=== PATIENT | female | born 1930 | race Caucasian/White ===

== ENCOUNTER → 2018-08-13 | Outpatient (CLI) | payer MEDICARE, OTHER | END | disposition home or self-care (01) | LOC: CFH 11:28 | PROVIDERS: ATTEND Family Medicine | DX: J98.11 Atelectasis (principal); I51.7 Cardiomegaly; I27.20 Pulmonary hypertension, unspecified | CPT/HCPCS: 71046 ==

== ENCOUNTER 2019-03-30 16:58 | Emergency (ER) | payer MEDICARE, OTHER ==
[~2019-03-30] VITALS: Ht 152.4 cm; Wt 72.7 kg
--- NOTE | 2019-03-30 17:28 | NUR ---
[facility]
--- NOTE | 2019-03-30 17:31 | NUR ---
PT TO ROOM AT THIS TIME. FAMILY HELPING PT CHANGE INTO GOWN
--- NOTE | 2019-03-30 18:12 | NUR ---
CARE GIVERS BEDSIDE.
--- NOTE | 2019-03-30 18:12 | NUR ---
88 Y/O FEMALE PRESENTS TO ED WITH C/O COUGH. PER CARE GIVERS, PT HAS HAD A COUGH FOR 2 WEEKS AND IS ON CEFDINIR. COUGH WAS CLEAR IN COLOR AND NOW THE COUGH IS BACK. NADN. PT RESTING ON GURNEY. WARM BLANKETS PROVIDED. PT PLACED ON CONT PULSE OX,NIBP. EDMD BEDSIDE.
--- NOTE | 2019-03-30 18:35 | NUR ---
BSC TAKEN TO PT ROOM. CAREGIVERS BEDSIDE HELPING PT.
[2019-03-30 18:46] LABS: BASOPHILS % (AUTO) 2 % (0-1); EOSINOPHILS # (AUTO) 0.21 x10^3/uL (0-0.4); EOSINOPHILS % (AUTO) 3 % (1-7); LYMPHOCYTES # (AUTO) 3.07 x10^3/uL (1-3.4); LYMPHOCYTES % (AUTO) 38 % (22-44); MD NO; MEAN CORPUSCULAR HEMOGLOBIN 29.7 pg (27.0-34.8); MEAN PLATELET VOLUME 9.1 fL (7.4-10.4); MONOCYTES # (AUTO) 0.88 x10^3/uL (0.2-0.8); MONOCYTES % (AUTO) 11 % (2-9); NEUTROPHILS # (AUTO) 3.77 x10^3/uL (1.8-6.8); NEUTROPHILS % (AUTO) 46 % (42-75); PLATELET COUNT 212 x10^3/uL (130-400); RED BLOOD COUNT 5.02 x10^6/uL (3.82-5.3); RED CELL DISTRIBUTION WIDTH 15.1 % (9.6-15.2)
--- NOTE | 2019-03-30 18:53 | NUR ---
BEDSIDE REPORT TO SIOBHAN POLK.
[2019-03-30 19:00] VITALS: BP 126/75
[2019-03-30 19:00] LABS: ALBUMIN 3.3 g/dL (3.4-5.0); ANION GAP 4 mmol/L (5-15); CALCIUM 8.6 mg/dL (8.5-10.1); CHLORIDE 109 mmol/L (98-107); CREATININE 0.85 mg/dL (0.55-1.02)
--- NOTE | 2019-03-30 19:00 | NUR ---
REPORT FROM SIOBHAN LARIOS. PT RESTING [place]. FAMILY AT BEDSIDE. VSS.
[2019-03-30 19:03] LABS: TROPONIN I < 0.015 ng/mL (0.000-0.045)
== END 2019-03-30 19:50 | disposition home or self-care (01) ==
LOC: ED 18:38
DX: J20.8 Acute bronchitis due to other specified organisms (principal)
CPT/HCPCS: 36415; 71045; 80048; 82040; 84484; 85025; 93005; 99284

== ENCOUNTER 2019-04-04 03:07 | Inpatient (IN) | payer MEDICARE, OTHER ==
[~2019-04-04] VITALS: Ht 160 cm; Wt 73.3 kg
--- NOTE | 2019-04-04 03:59 | NUR ---
CAREGIVER REPORTS PT HAS BEEN COUGHING MORE W/ INCREASED AMOUNTS OF YELLOW PHLEGM, REPORTS HAS BEEN TAKING ANTIBX ORDERED. PT NOTED TO HAVE STRONG CONGESTED COUGH. PT CURRENTLY ON 2L OXYGEN VIA NC, PER CAREGIVER NO HX OF OXYGEN USE AT HOME. PT CURRENTLY DENIES C/O PAIN. REPOSITIONED ON [place], CALL LIGHT IN HAND. REVIEWED POC W/ PT AND CAREGIVER INCLUDING PENDING TEST RESULTS AND CHART REVIEW BY ERP.
[2019-04-04 04:10] LABS: ALANINE AMINOTRANSFERASE 18 U/L (12-78); ALBUMIN 3.3 g/dL (3.4-5.0); ANION GAP 7 mmol/L (5-15); CALCIUM 8.5 mg/dL (8.5-10.1); CHLORIDE 106 mmol/L (98-107); CREATININE 0.87 mg/dL (0.55-1.02)
[2019-04-04 04:14] LABS: ALKALINE PHOSPHATASE 118 U/L (45-117); TOTAL PROTEIN 7.1 g/dL (6.4-8.2); TROPONIN I < 0.015 ng/mL (0.000-0.045)
[2019-04-04 04:21] LABS: BASOPHILS # (AUTO) 0.02 x10^3/uL (0-0.1); BASOPHILS % (AUTO) 0 % (0-1); EOSINOPHILS # (AUTO) 0.04 x10^3/uL (0-0.4); EOSINOPHILS % (AUTO) 0 % (1-7); LYMPHOCYTES # (AUTO) 1.12 x10^3/uL (1-3.4); LYMPHOCYTES % (AUTO) 8 % (22-44); MD NO; MEAN CORPUSCULAR HEMOGLOBIN 29.5 pg (27.0-34.8); MEAN CORPUSCULAR HGB CONC 32.7 g/dL (32.4-35.8); MEAN CORPUSCULAR VOLUME 90.2 fL (80-100); MEAN PLATELET VOLUME 9.4 fL (7.4-10.4); MONOCYTES # (AUTO) 0.38 x10^3/uL (0.2-0.8); MONOCYTES % (AUTO) 3 % (2-9); NEUTROPHILS # (AUTO) 12.31 x10^3/uL (1.8-6.8); NEUTROPHILS % (AUTO) 89 % (42-75); PLATELET COUNT 192 x10^3/uL (130-400); RED BLOOD COUNT 5.09 x10^6/uL (3.82-5.3); RED CELL DISTRIBUTION WIDTH 15.3 % (9.6-15.2)
--- NOTE | 2019-04-04 04:52 | NUR ---
PT HAD SMALL AMOUNT YELLOW EMESIS AFTER COUGHING. PT CLEANED, LINENS CHANGED, REPOSITIONED ON GURNEY FOR COMFORT. MD AT BEDSIDE.
[2019-04-04] MEDS ORDERED: LABETALOL 5MG/ML, 20ML IVPush PRN (05:30)
[2019-04-04] MEDS ORDERED: hydrALAzine 20 MG/ML, 1ML IVPush PRN (05:30)
[2019-04-04] MEDS ORDERED: ONDANSETRON ODT 4 MG PO PRN (05:30)
[2019-04-04] MEDS ORDERED: ACETAMINOPHEN 325 MG TABLET PO PRN (05:30)
[2019-04-04] MEDS: FUROSEMIDE 20 MG TABLET PO SCH ×2 (05:30→08:00)
[2019-04-04] MEDS ORDERED: ONDANSETRON 2MG/ML, 2ML IVPush PRN (05:30)
[2019-04-04] MEDS ORDERED: POLYETHYLENE GLYCOL 17 GM PACKET PO PRN (05:30)
[2019-04-04] MEDS ORDERED: TRAZODONE 50MG TABLET PO PRN (05:30)
--- NOTE | 2019-04-04 05:40 | NUR ---
PT RESTING QUIETLY AT THIS TIME, FAMILY AT BEDSIDE. AWARE WAITING FOR AVAILABLE ROOM, DENIED ANY QUESTIONS/CONCERNS AT THIS TIME. DECLINED NEED FOR WARM BLANKET.
--- NOTE | 2019-04-04 06:04 | NUR ---
CAREGIVER REPORTS LEFT MEDICATION LIST AT HOME. CAREGIVER REPORTS WILL RUN HOME AND GET LIST ONCE PT IS ADMITTED UPSTAIRS. UNABLE TO COMPLETE MED REC AT THIS TIME.
--- NOTE | 2019-04-04 06:43 | NUR ---
PT RESTING QUIETLY AT THIS TIME. FAMILY AND CAREGIVER AT BEDSIDE, DENY ANY NEEDS AT THIS TIME. AWARE WAITING FOR AVAILABLE ROOM FOR ADMISSION.
--- NOTE | 2019-04-04 06:51 | NUR ---
REPORT TO SIOBHAN PTEERS.
[2019-04-04] MEDS ORDERED: TRAZ-96 PO (09:37)
[2019-04-04] MEDS ORDERED: ATOR10TA9 PO (09:37)
[2019-04-04] MEDS ORDERED: DONE5TAB14 PO (09:37)
[2019-04-04] MEDS ORDERED: MEMA5TAB14 PO (09:37)
[2019-04-04] MEDS ORDERED: CITA20TA6 PO (09:37)
[2019-04-04] MEDS ORDERED: ASPI81TA45 PO (09:37)
[2019-04-04] MEDS ORDERED: FURO20TA3 PO (09:37)
--- NOTE | 2019-04-04 10:21 | NUR ---
REPORT TO RECIEVING SIOBHAN MILIAN/EDWIN
--- NOTE | 2019-04-04 10:59 | NUR ---
PT FAMILY NOW REQUESTING TO SPEAK TO MD PRIOR TO BEING MOVED TO ON CARD TELE, THE POA IS AT BEDSIDE AND DOES NOT UNDERSTAND WHY THE PT NEEDS TO BE ADMITTED, WHAT THE CHANGES ARE FROM 4 DAYS AGO, THIS RN UNABLE TO UPDATE PT FAMILY EFFECTIVELY. MD CALLED TO SPEAK WITH PT,
[2019-04-04 12:31] VITALS: BP 110/69
[2019-04-04] MEDS: FUROSEMIDE 20 MG/2 ML IV SCH ×2 (15:45→23:37)
[2019-04-04] MEDS: POTASSIUM CHLORIDE 20 MEQ TAB.ER.PRT PO SCH ×2 (15:46→19:49)
[2019-04-04] MEDS: ENOXAPARIN 40 MG/0.4 ML SQ SCH (15:46)
[2019-04-04 18:56] VITALS: BP 107/59
[2019-04-04] MEDS: TRAZODONE 50MG TABLET PO SCH (21:07)
[2019-04-04] MEDS: ATORVASTATIN 10 MG TABLET PO SCH (21:07)
[2019-04-04] MEDS: MEMANTINE 5MG TABLET PO SCH (21:07)
[2019-04-05 01:02] VITALS: BP 96/59
[2019-04-05] MEDS: ENOXAPARIN 40 MG/0.4 ML SQ SCH (04:55)
[2019-04-05 04:58] LABS: MEAN CORPUSCULAR HEMOGLOBIN 29.6 pg (27.0-34.8); MEAN CORPUSCULAR HGB CONC 32.6 g/dL (32.4-35.8); MEAN CORPUSCULAR VOLUME 90.8 fL (80-100); MEAN PLATELET VOLUME 9.4 fL (7.4-10.4); PLATELET COUNT 171 x10^3/uL (130-400); RED BLOOD COUNT 4.58 x10^6/uL (3.82-5.3); RED CELL DISTRIBUTION WIDTH 15.1 % (9.6-15.2)
[2019-04-05 05:15] LABS: ANION GAP 4 mmol/L (5-15); CALCIUM 7.7 mg/dL (8.5-10.1); CHLORIDE 106 mmol/L (98-107); CREATININE 0.89 mg/dL (0.55-1.02)
[2019-04-05 05:57] LABS: BASOPHILS # (AUTO) 0.02 x10^3/uL (0-0.1); BASOPHILS % (AUTO) 0 % (0-1); EOSINOPHILS # (AUTO) 0.01 x10^3/uL (0-0.4); EOSINOPHILS % (AUTO) 0 % (1-7); LYMPHOCYTES # (AUTO) 1.18 x10^3/uL (1-3.4); LYMPHOCYTES % (AUTO) 8 % (22-44); MD SCAN; MONOCYTES # (AUTO) 0.46 x10^3/uL (0.2-0.8); MONOCYTES % (AUTO) 3 % (2-9); NEUTROPHILS # (AUTO) 12.69 x10^3/uL (1.8-6.8); NEUTROPHILS % (AUTO) 88 % (42-75)
[2019-04-05 10:00] VITALS: BP_SYST 100; BP_SYST 91; BP_DIAS 57; BP_DIAS 62
[2019-04-05] MEDS: DONEPEZIL 5 MG TABLET PO SCH (10:14)
[2019-04-05] MEDS: CITALOPRAM 20 MG TABLET PO SCH (10:14)
[2019-04-05] MEDS: MEMANTINE 5MG TABLET PO SCH ×2 (10:14→20:31)
[2019-04-05] MEDS: ASPIRIN 81 MG TABLET EC PO SCH (10:14)
[2019-04-05] MEDS: POTASSIUM CHLORIDE 20 MEQ TAB.ER.PRT PO SCH ×2 (10:16→18:22)
[2019-04-05] MEDS: FUROSEMIDE 20 MG/2 ML IV SCH ×2 (10:54→18:22)
[2019-04-05 12:11] VITALS: BP 108/68
[2019-04-05] MEDS: CARVEDILOL 3.125 MG TABLET PO SCH ×2 (12:13→20:31)
[2019-04-05] MEDS: GUAIFENESIN/DM 200-20MG, 10ML UDC PO PRN ×2 (13:16→20:30)
[2019-04-05 14:15] VITALS: BP 103/71
[2019-04-05 18:20] VITALS: BP 94/61
[2019-04-05 19:58] VITALS: BP 110/70
[2019-04-05] MEDS: ATORVASTATIN 10 MG TABLET PO SCH (20:31)
[2019-04-05] MEDS: TRAZODONE 50MG TABLET PO SCH (20:31)
[2019-04-06 03:55] VITALS: BP 100/64
[2019-04-06 05:57] LABS: MEAN CORPUSCULAR HEMOGLOBIN 29.3 pg (27.0-34.8); MEAN CORPUSCULAR HGB CONC 32.3 g/dL (32.4-35.8); MEAN CORPUSCULAR VOLUME 90.7 fL (80-100); MEAN PLATELET VOLUME 9.6 fL (7.4-10.4); PLATELET COUNT 178 x10^3/uL (130-400); RED BLOOD COUNT 4.73 x10^6/uL (3.82-5.3); RED CELL DISTRIBUTION WIDTH 14.9 % (9.6-15.2)
[2019-04-06 06:08] LABS: CHLORIDE 104 mmol/L (98-107)
[2019-04-06 06:15] LABS: ANION GAP 8 mmol/L (5-15); CALCIUM 8.2 mg/dL (8.5-10.1)
[2019-04-06 06:43] VITALS: BP 101/65
[2019-04-06] MEDS: ENOXAPARIN 40 MG/0.4 ML SQ SCH (06:44)
[2019-04-06] MEDS: CARVEDILOL 3.125 MG TABLET PO SCH (06:44)
[2019-04-06 07:19] LABS: BASOPHILS # (AUTO) 0.03 x10^3/uL (0-0.1); BASOPHILS % (AUTO) 0 % (0-1); EOSINOPHILS # (AUTO) 0.01 x10^3/uL (0-0.4); EOSINOPHILS % (AUTO) 0 % (1-7); LYMPHOCYTES # (AUTO) 0.87 x10^3/uL (1-3.4); LYMPHOCYTES % (AUTO) 8 % (22-44); MD SCAN; MONOCYTES % (AUTO) 4 % (2-9); NEUTROPHILS # (AUTO) 10.07 x10^3/uL (1.8-6.8); NEUTROPHILS % (AUTO) 88 % (42-75)
[2019-04-06] MEDS: DONEPEZIL 5 MG TABLET PO SCH (08:35)
[2019-04-06] MEDS: FUROSEMIDE 20 MG/2 ML IV SCH (08:35)
[2019-04-06] MEDS: POTASSIUM CHLORIDE 20 MEQ TAB.ER.PRT PO SCH ×2 (08:35→17:00)
[2019-04-06] MEDS: ASPIRIN 81 MG TABLET EC PO SCH (08:35)
[2019-04-06] MEDS: MEMANTINE 5MG TABLET PO SCH ×2 (08:35→21:50)
[2019-04-06] MEDS: CITALOPRAM 20 MG TABLET PO SCH (08:35)
[2019-04-06 12:46] LABS: MICROSCOPIC INDICATED
[2019-04-06 14:14] LABS: CULTURE INDICATED? YES
[2019-04-06 15:00] VITALS: BP 100/62
[2019-04-06] MEDS: CARVEDILOL 6.25 MG TABLET PO SCH (18:27)
[2019-04-06 19:31] VITALS: BP 94/57
[2019-04-06] MEDS: TRAZODONE 50MG TABLET PO SCH (21:00)
[2019-04-06] MEDS: ATORVASTATIN 10 MG TABLET PO SCH (21:50)
[2019-04-07 03:21] VITALS: BP 118/69
[2019-04-07 05:43] LABS: ANION GAP 6 mmol/L (5-15); CALCIUM 8.9 mg/dL (8.5-10.1); CHLORIDE 104 mmol/L (98-107); MEAN CORPUSCULAR HEMOGLOBIN 29.3 pg (27.0-34.8); MEAN CORPUSCULAR HGB CONC 32.3 g/dL (32.4-35.8); MEAN CORPUSCULAR VOLUME 90.9 fL (80-100); MEAN PLATELET VOLUME 9.9 fL (7.4-10.4); PLATELET COUNT 189 x10^3/uL (130-400); RED BLOOD COUNT 4.55 x10^6/uL (3.82-5.3); RED CELL DISTRIBUTION WIDTH 14.8 % (9.6-15.2)
[2019-04-07 05:45] LABS: CREATININE 0.85 mg/dL (0.55-1.02)
[2019-04-07 06:05] VITALS: BP 114/68
[2019-04-07] MEDS: CARVEDILOL 6.25 MG TABLET PO SCH ×2 (06:06→18:14)
[2019-04-07] MEDS: ENOXAPARIN 40 MG/0.4 ML SQ SCH (06:11)
[2019-04-07 06:44] LABS: BASOPHILS # (AUTO) 0.01 x10^3/uL (0-0.1); BASOPHILS % (AUTO) 0 % (0-1); EOSINOPHILS # (AUTO) 0.01 x10^3/uL (0-0.4); EOSINOPHILS % (AUTO) 0 % (1-7); LYMPHOCYTES # (AUTO) 0.68 x10^3/uL (1-3.4); LYMPHOCYTES % (AUTO) 8 % (22-44); MD SCAN; MONOCYTES # (AUTO) 0.38 x10^3/uL (0.2-0.8); MONOCYTES % (AUTO) 4 % (2-9); NEUTROPHILS # (AUTO) 7.84 x10^3/uL (1.8-6.8); NEUTROPHILS % (AUTO) 88 % (42-75)
[2019-04-07 07:51] VITALS: BP 98/60
[2019-04-07] MEDS: CITALOPRAM 20 MG TABLET PO SCH (08:43)
[2019-04-07] MEDS: FUROSEMIDE 20 MG TABLET PO SCH (08:43)
[2019-04-07] MEDS: POTASSIUM CHLORIDE 20 MEQ TAB.ER.PRT PO SCH ×2 (08:43→08:44)
[2019-04-07] MEDS: ASPIRIN 81 MG TABLET EC PO SCH (08:43)
[2019-04-07] MEDS: MEMANTINE 5MG TABLET PO SCH ×2 (08:43→22:16)
[2019-04-07] MEDS: DONEPEZIL 5 MG TABLET PO SCH (08:43)
[2019-04-07] MEDS ORDERED: ALBUTEROL/IPRATROPIUM 2.5MG/0.5MG, 3 ML ONE (10:20)
[2019-04-07] MEDS ORDERED: ALBUTEROL/IPRATROPIUM 2.5MG/0.5MG, 3 ML NPPB PRN (10:30)
[2019-04-07] MEDS: ALBUTEROL/IPRATROPIUM 2.5MG/0.5MG, 3 ML NPPB SCH ×4 (10:57→23:06)
[2019-04-07 12:52] VITALS: BP 112/47
[2019-04-07 18:31] VITALS: BP 105/62
[2019-04-07] MEDS ORDERED: LISINOPRIL 5 MG TABLET PO SCH (21:00)
[2019-04-07 22:00] VITALS: BP 99/60
[2019-04-07] MEDS: ATORVASTATIN 10 MG TABLET PO SCH (22:17)
[2019-04-07] MEDS: TRAZODONE 50MG TABLET PO SCH (22:20)
[2019-04-08 01:50] VITALS: BP 89/50
[2019-04-08] MEDS: ALBUTEROL/IPRATROPIUM 2.5MG/0.5MG, 3 ML NPPB SCH ×6 (02:38→22:58)
[2019-04-08] MEDS: ENOXAPARIN 40 MG/0.4 ML SQ SCH (02:45)
[2019-04-08 05:37] VITALS: BP 96/60
[2019-04-08] MEDS: CARVEDILOL 6.25 MG TABLET PO SCH ×2 (05:56→18:00)
[2019-04-08 06:54] LABS: MEAN CORPUSCULAR HEMOGLOBIN 29.6 pg (27.0-34.8); MEAN CORPUSCULAR HGB CONC 32.2 g/dL (32.4-35.8); MEAN CORPUSCULAR VOLUME 91.8 fL (80-100); MEAN PLATELET VOLUME 9.4 fL (7.4-10.4); PLATELET COUNT 211 x10^3/uL (130-400); RED BLOOD COUNT 4.57 x10^6/uL (3.82-5.3); RED CELL DISTRIBUTION WIDTH 15.1 % (9.6-15.2)
[2019-04-08 07:09] LABS: ANION GAP 5 mmol/L (5-15); CALCIUM 8.5 mg/dL (8.5-10.1); CHLORIDE 104 mmol/L (98-107)
[2019-04-08 07:14] LABS: ALANINE AMINOTRANSFERASE 18 U/L (12-78); ALKALINE PHOSPHATASE 131 U/L (45-117); BILIRUBIN,TOTAL 1.7 mg/dL (0.2-1.0); CREATININE 0.79 mg/dL (0.55-1.02); TOTAL PROTEIN 6.3 g/dL (6.4-8.2)
[2019-04-08 07:44] VITALS: BP 109/65
[2019-04-08 08:03] LABS: MD YES
[2019-04-08 08:06] LABS: <PLATELET ESTIMATE> ADEQUATE; <PLT MORPHOLOGY> NORMAL PLT MORPH; <RBC MORPHOLOGY> NORMAL; BAND#(MANUAL) 0.92 x10^3/uL; BANDS%(MANUAL) 11 % (0-7); LYMPH#(MANUAL) 0.92 x10^3/uL (1-3.4); LYMPHS% (MANUAL) 11 % (22-44); MONOS#(MANUAL) 1.01 x10^3/uL (0.3-2.7); MONOS% (MANUAL) 12 % (2-9); SEG#(MANUAL) 5.54 x10^3/uL (1.8-6.8); SEGS% (MANUAL) 66 % (42-75)
[2019-04-08 08:07] LABS: PMNS WITH VACUOLES 1+
[2019-04-08] MEDS: LISINOPRIL 5 MG TABLET PO SCH ×2 (09:00→10:18)
[2019-04-08] MEDS: DONEPEZIL 5 MG TABLET PO SCH (10:18)
[2019-04-08] MEDS: CITALOPRAM 20 MG TABLET PO SCH (10:18)
[2019-04-08] MEDS: MEMANTINE 5MG TABLET PO SCH ×2 (10:19→22:09)
[2019-04-08] MEDS: DOXYCYCLINE 100MG TABLET PO SCH ×2 (10:19→22:09)
[2019-04-08] MEDS: POTASSIUM CHLORIDE 20 MEQ TAB.ER.PRT PO SCH (10:19)
[2019-04-08] MEDS: ASPIRIN 81 MG TABLET EC PO SCH (10:19)
[2019-04-08] MEDS: FUROSEMIDE 20 MG TABLET PO SCH (10:19)
[2019-04-08] MEDS: CEFTRIAXONE PMX 1GM/50ML 50 ML IV SCH (10:19)
[2019-04-08 13:47] VITALS: BP 100/63
[2019-04-08] MEDS ORDERED: DOCUSATE 100 MG CAPSULE PO PRN (16:00)
[2019-04-08 18:22] VITALS: BP_SYST 84; BP_DIAS 52; BP_DIAS 54
[2019-04-08 20:20] VITALS: BP 97/60
[2019-04-08] MEDS: TRAZODONE 50MG TABLET PO SCH (22:09)
[2019-04-08] MEDS: ATORVASTATIN 10 MG TABLET PO SCH (22:09)
[2019-04-09] MEDS: ALBUTEROL/IPRATROPIUM 2.5MG/0.5MG, 3 ML NPPB SCH ×4 (03:00→15:05)
[2019-04-09 03:17] VITALS: BP 101/60
[2019-04-09 05:49] VITALS: BP 99/55
[2019-04-09] MEDS: CARVEDILOL 6.25 MG TABLET PO SCH ×2 (06:13→18:27)
[2019-04-09 06:24] LABS: BASOPHILS # (AUTO) 0.05 x10^3/uL (0-0.1); BASOPHILS % (AUTO) 0 % (0-1); EOSINOPHILS # (AUTO) 0.03 x10^3/uL (0-0.4); EOSINOPHILS % (AUTO) 0 % (1-7); LYMPHOCYTES # (AUTO) 1.35 x10^3/uL (1-3.4); LYMPHOCYTES % (AUTO) 11 % (22-44); MD NO; MEAN CORPUSCULAR HEMOGLOBIN 29.5 pg (27.0-34.8); MEAN CORPUSCULAR HGB CONC 32.5 g/dL (32.4-35.8); MEAN CORPUSCULAR VOLUME 90.9 fL (80-100); MONOCYTES # (AUTO) 0.59 x10^3/uL (0.2-0.8); MONOCYTES % (AUTO) 5 % (2-9); NEUTROPHILS # (AUTO) 10.41 x10^3/uL (1.8-6.8); NEUTROPHILS % (AUTO) 84 % (42-75); PLATELET COUNT 235 x10^3/uL (130-400); RED BLOOD COUNT 4.52 x10^6/uL (3.82-5.3); RED CELL DISTRIBUTION WIDTH 15.3 % (9.6-15.2)
[2019-04-09 06:35] LABS: CALCIUM 8.8 mg/dL (8.5-10.1); CHLORIDE 105 mmol/L (98-107)
[2019-04-09 06:39] LABS: ANION GAP 4 mmol/L (5-15); CREATININE 0.78 mg/dL (0.55-1.02)
[2019-04-09 07:20] VITALS: BP 90/52
[2019-04-09] MEDS: ENOXAPARIN 40 MG/0.4 ML SQ SCH (09:00)
[2019-04-09] MEDS: DONEPEZIL 5 MG TABLET PO SCH (09:54)
[2019-04-09] MEDS: ASPIRIN 81 MG TABLET EC PO SCH (09:54)
[2019-04-09] MEDS: POTASSIUM CHLORIDE 20 MEQ TAB.ER.PRT PO SCH (09:54)
[2019-04-09] MEDS: MEMANTINE 5MG TABLET PO SCH ×2 (09:54→21:34)
[2019-04-09] MEDS: CITALOPRAM 20 MG TABLET PO SCH (09:54)
[2019-04-09] MEDS: FUROSEMIDE 20 MG TABLET PO SCH (09:54)
[2019-04-09] MEDS: DOXYCYCLINE 100MG TABLET PO SCH ×2 (09:54→21:35)
[2019-04-09] MEDS: LISINOPRIL 5 MG TABLET PO SCH (09:54)
[2019-04-09] MEDS: CEFTRIAXONE PMX 1GM/50ML 50 ML IV SCH (09:56)
[2019-04-09 13:31] VITALS: BP 99/65
[2019-04-09 18:27] VITALS: BP 95/62
[2019-04-09 19:34] VITALS: BP 92/54
[2019-04-09] MEDS ORDERED: ALBUTEROL/IPRATROPIUM 2.5MG/0.5MG, 3 ML NPPB PRN (20:30)
[2019-04-09] MEDS: TRAZODONE 50MG TABLET PO SCH (21:00)
[2019-04-09] MEDS: GUAIFENESIN/DM 200-20MG, 10ML UDC PO PRN (21:34)
[2019-04-09] MEDS: ATORVASTATIN 10 MG TABLET PO SCH (21:35)
[2019-04-10 00:08] VITALS: BP 92/55
[2019-04-10] MEDS: CARVEDILOL 6.25 MG TABLET PO SCH ×2 (05:34→17:36)
[2019-04-10 06:11] LABS: MEAN CORPUSCULAR HEMOGLOBIN 29.7 pg (27.0-34.8); MEAN CORPUSCULAR HGB CONC 32.9 g/dL (32.4-35.8); MEAN CORPUSCULAR VOLUME 90.1 fL (80-100); MEAN PLATELET VOLUME 9.6 fL (7.4-10.4); PLATELET COUNT 255 x10^3/uL (130-400); RED BLOOD COUNT 4.46 x10^6/uL (3.82-5.3); RED CELL DISTRIBUTION WIDTH 15.6 % (9.6-15.2)
[2019-04-10 06:17] LABS: ANION GAP 3 mmol/L (5-15); CALCIUM 8.8 mg/dL (8.5-10.1); CHLORIDE 105 mmol/L (98-107); CREATININE 0.73 mg/dL (0.55-1.02)
[2019-04-10 07:11] LABS: MD YES
[2019-04-10 07:15] LABS: BAND#(MANUAL) 0.53 x10^3/uL; BANDS%(MANUAL) 5 % (0-7); EOS#(MANUAL) 0.21 x10^3/uL (0.0-0.4); EOS% (MANUAL) 2 % (1-7); LYMPH#(MANUAL) 1.37 x10^3/uL (1-3.4); LYMPHS% (MANUAL) 13 % (22-44); METAMYELOCYTES# (MANUAL) 0.21 x10^3/uL (0-0); METAMYELOCYTES% (MANUAL) 2 % (0-1); MONOS#(MANUAL) 1.16 x10^3/uL (0.3-2.7); MONOS% (MANUAL) 11 % (2-9); MYELOCYTES# (MANUAL) 0.21 x10^3/uL (0-0); MYELOCYTES% (MANUAL) 2 % (0-0); REACTIVE LYMPHS # (MANUAL) 0.32 x10^3/uL (0-0); REACTIVE LYMPHS % (MANUAL) 3 % (0-0); SEG#(MANUAL) 6.51 x10^3/uL (1.8-6.8); SEGS% (MANUAL) 62 % (42-75)
[2019-04-10 07:21] LABS: OVALOCYTES 1+
[2019-04-10 07:22] LABS: <PLATELET ESTIMATE> ADEQUATE; <PLT MORPHOLOGY> NORMAL PLT MORPH; TOXIC GRAN 1+
[2019-04-10 07:49] VITALS: BP 113/60
[2019-04-10] MEDS: LISINOPRIL 5 MG TABLET PO SCH (09:00)
[2019-04-10] MEDS: ASPIRIN 81 MG TABLET EC PO SCH (09:17)
[2019-04-10] MEDS: DOXYCYCLINE 100MG TABLET PO SCH ×2 (09:17→22:00)
[2019-04-10] MEDS: POTASSIUM CHLORIDE 20 MEQ TAB.ER.PRT PO SCH (09:17)
[2019-04-10] MEDS: ENOXAPARIN 40 MG/0.4 ML SQ SCH (09:18)
[2019-04-10] MEDS: DONEPEZIL 5 MG TABLET PO SCH (09:18)
[2019-04-10] MEDS: FUROSEMIDE 20 MG TABLET PO SCH (09:18)
[2019-04-10] MEDS: MEMANTINE 5MG TABLET PO SCH ×2 (09:18→22:00)
[2019-04-10] MEDS: CEFTRIAXONE PMX 1GM/50ML 50 ML IV SCH (09:19)
[2019-04-10] MEDS: CITALOPRAM 20 MG TABLET PO SCH (09:19)
[2019-04-10 13:32] VITALS: BP 109/64
[2019-04-10 19:17] VITALS: BP 96/55
[2019-04-10] MEDS: ATORVASTATIN 10 MG TABLET PO SCH (22:00)
[2019-04-10] MEDS: TRAZODONE 50MG TABLET PO SCH (22:00)
[2019-04-11 01:30] VITALS: BP 114/70
[2019-04-11 05:52] VITALS: BP 112/69
[2019-04-11] MEDS: CARVEDILOL 6.25 MG TABLET PO SCH (05:53)
[2019-04-11 06:10] LABS: MEAN CORPUSCULAR HEMOGLOBIN 29.3 pg (27.0-34.8); MEAN CORPUSCULAR HGB CONC 32.2 g/dL (32.4-35.8); MEAN CORPUSCULAR VOLUME 90.9 fL (80-100); MEAN PLATELET VOLUME 9.4 fL (7.4-10.4); PLATELET COUNT 304 x10^3/uL (130-400); RED BLOOD COUNT 4.51 x10^6/uL (3.82-5.3); RED CELL DISTRIBUTION WIDTH 15.3 % (9.6-15.2)
[2019-04-11 06:24] LABS: ANION GAP 6 mmol/L (5-15); CALCIUM 8.6 mg/dL (8.5-10.1); CHLORIDE 107 mmol/L (98-107); CREATININE 0.62 mg/dL (0.55-1.02)
[2019-04-11 06:44] LABS: MD YES
[2019-04-11 06:45] LABS: BAND#(MANUAL) 0.09 x10^3/uL; BANDS%(MANUAL) 1 % (0-7); METAMYELOCYTES# (MANUAL) 0.18 x10^3/uL (0-0); METAMYELOCYTES% (MANUAL) 2 % (0-1); MYELOCYTES# (MANUAL) 0.09 x10^3/uL (0-0); MYELOCYTES% (MANUAL) 1 % (0-0); REACTIVE LYMPHS # (MANUAL) 0.09 x10^3/uL (0-0); REACTIVE LYMPHS % (MANUAL) 1 % (0-0)
[2019-04-11 06:46] LABS: <PLATELET ESTIMATE> ADEQUATE; <PLT MORPHOLOGY> NORMAL PLT MORPH; EOS#(MANUAL) 0.18 x10^3/uL (0.0-0.4); EOS% (MANUAL) 2 % (1-7); LYMPH#(MANUAL) 1.96 x10^3/uL (1-3.4); LYMPHS% (MANUAL) 22 % (22-44); MONOS#(MANUAL) 0.62 x10^3/uL (0.3-2.7); MONOS% (MANUAL) 7 % (2-9); OVALOCYTES 1+; SEGS% (MANUAL) 64 % (42-75)
[2019-04-11 07:58] VITALS: BP 111/61
[2019-04-11] MEDS: CITALOPRAM 20 MG TABLET PO SCH (09:34)
[2019-04-11] MEDS: MEMANTINE 5MG TABLET PO SCH (09:34)
[2019-04-11] MEDS: DONEPEZIL 5 MG TABLET PO SCH (09:34)
[2019-04-11] MEDS: FUROSEMIDE 20 MG TABLET PO SCH (09:34)
[2019-04-11] MEDS: DOXYCYCLINE 100MG TABLET PO SCH (09:34)
[2019-04-11] MEDS: ASPIRIN 81 MG TABLET EC PO SCH (09:34)
[2019-04-11] MEDS: LISINOPRIL 5 MG TABLET PO SCH (09:34)
[2019-04-11] MEDS: POTASSIUM CHLORIDE 20 MEQ TAB.ER.PRT PO SCH (09:34)
[2019-04-11] MEDS: ENOXAPARIN 40 MG/0.4 ML SQ SCH (09:35)
[2019-04-11] MEDS: CEFTRIAXONE PMX 1GM/50ML 50 ML IV SCH (09:40)
[2019-04-11] MEDS ORDERED: GUAI5SYR PO (11:51)
[2019-04-11] MEDS ORDERED: CARV6.2512 PO (11:51)
[2019-04-11] MEDS ORDERED: LISI5TAB7 PO (11:51)
[2019-04-11] MEDS ORDERED: POTA20TA6 PO (11:51)
[2019-04-11] MEDS ORDERED: AMOX500T PO (11:51)
[2019-04-11] MEDS ORDERED: FURO20TA3 PO (11:51)
[2019-04-11] MEDS ORDERED: DOXY100T PO (11:51)
== END 2019-04-11 19:27 | disposition home health service (06) | DRG 291 ==
LOC: ED 03:33 → EDIP 04:40 → 5SO 12:21
PROVIDERS: ADMIT Family Medicine; ATTEND Family Medicine
DX: I11.0 Hypertensive heart disease with heart failure (principal); J96.01 Acute respiratory failure with hypoxia; J18.9 Pneumonia, unspecified organism; E44.1 Mild protein-calorie malnutrition; I50.43 Acute on chronic combined systolic (congestive) and diastolic (congestive) heart failure; I42.9 Cardiomyopathy, unspecified; D72.829 Elevated white blood cell count, unspecified; I08.0 Rheumatic disorders of both mitral and aortic valves; Z68.28 Body mass index [BMI] 28.0-28.9, adult; E78.5 Hyperlipidemia, unspecified; F03.90 Unspecified dementia, unspecified severity, without behavioral disturbance, psychotic disturbance, mood disturbance, and anxiety; I44.7 Left bundle-branch block, unspecified; Z86.711 Personal history of pulmonary embolism; Z86.718 Personal history of other venous thrombosis and embolism; Z87.891 Personal history of nicotine dependence
CPT/HCPCS: 36415; 71045; 80048; 80053; 81001; 83605; 83735; 83880; 84100; 84145; 84484; 85025; 87040; 87086; 93005; 93306; 94640; 99285; G0378; J0696; J1650; J7620; J1940